=== PATIENT | female | born 1970 | race Caucasian/White ===

== ENCOUNTER 2018-06-13 15:39 | Outpatient (CLI) | payer OTHER | END 2018-06-13 18:59 | disposition home or self-care (01) | LOC: SMA 15:39 | DX: Z12.31 Encounter for screening mammogram for malignant neoplasm of breast (principal) | CPT/HCPCS: 77067 ==

== ENCOUNTER 2021-02-04 06:07 | Day surgery (SDC) | payer OTHER, SELFPAY ==
[2021-02-01 07:46] LABS: BASOPHILS % (AUTO) 0.3 % (0.0-2.0); EOSINOPHILS # (AUTO) 0.1 K/uL (0.0-0.4); HEMATOCRIT 34.8 % (36-48); HEMOGLOBIN 11.6 g/dL (12.0-16.0); LYMPHOCYTES # (AUTO) 2.3 K/uL (1.0-5.5); LYMPHOCYTES % (AUTO) 36.9 % (20.5-51.5); MEAN CORPUSCULAR HEMOGLOBIN 28 pg (27-31); MEAN CORPUSCULAR HGB CONC 33 % (32-36); MEAN CORPUSCULAR VOLUME 84 fL (79.0-98.0); MONOCYTES # (AUTO) 0.4 K/uL (0.0-1.0); MONOCYTES % (AUTO) 6.1 % (1.7-9.3); NEUTROPHILS # (AUTO) 3.3 K/uL (1.8-7.7); NEUTROPHILS % (AUTO) 54.7 % (40.0-70.0); PLATELET COUNT (AUTO) 255 K/uL (130-430); RED BLOOD CELL COUNT(AUTO) 4.16 MIL/uL (4.2-6.2); RED CELL DISTRIBUTION WIDTH 14.5 % (9.0-15.0); WHITE BLOOD COUNT (AUTO) 6.1 K/uL (4.8-10.8)
[2021-02-01 07:56] LABS: PROTHROMBIN TIME 10.5 SECS (9.5-12.5)
[2021-02-01 08:03] LABS: ALBUMIN 3.2 g/dL (3.4-4.8); CALCIUM 8.2 mg/dL (8.4-11.0); CREATININE 0.87 mg/dL (0.55-1.30); POTASSIUM 3.7 mmol/L (3.5-5.1); TOTAL BILIRUBIN 0.3 mg/dL (0.0-1.0)
[~2021-02-04] VITALS: Ht 150.4 cm; Wt 93.9 kg
[2021-02-04] MEDS ORDERED: CEFAZOLIN SOD 2 GM in D5W 50 ML IV ONE (07:00)
[2021-02-04 07:13] LABS: HCG,QUAL RESULT NEGATIVE (NEGATIVE)
[2021-02-04] MEDS ORDERED: fentaNYL CITRATE/PF 100 MCG/2 ML AMP IVP ONE (07:29)
[2021-02-04] MEDS ORDERED: HYDROmorphone 2 MG/ML VIAL IVP ONE (07:29)
[2021-02-04] MEDS ORDERED: ROPIVACAINE 40 MG/20 ML AMP EP ONE (07:29)
[2021-02-04] MEDS ORDERED: DEXAMETHASONE SOD PHOSPHATE 4 MG/ML VIAL IVP ONE (07:29)
[2021-02-04] MEDS ORDERED: DESFLURANE 15 MIN GAS INH ONE (07:29)
[2021-02-04] MEDS ORDERED: PROPOFOL 200MG/ 20ML VIAL (DIPRIVAN) IV ONE (07:29)
[2021-02-04] MEDS ORDERED: ONDANSETRON HCL 4 MG/2 ML VIAL IVP ONE ×2 (07:29→10:38)
[2021-02-04] MEDS ORDERED: KETOROLAC TROMETHAMINE 30 MG VIAL IVP ONE (07:29)
[2021-02-04] MEDS ORDERED: METOCLOPRAMIDE HCL 10 MG/2 ML VIAL IVP ONE (07:29)
[2021-02-04] MEDS ORDERED: LR 1,000 ML IV.SOLN IV ONE (07:29)
[2021-02-04] MEDS ORDERED: ACETAMINOPHEN I.V. 1000 MG 100 ML IV ONE (07:47)
[2021-02-04] MEDS ORDERED: HYDROmorphone 1 MG/ML INJ. CARTRIDGE IVP PRN (08:30)
[2021-02-04] MEDS ORDERED: ONDANSETRON HCL 4 MG/2 ML VIAL IVP PRN (08:30)
[2021-02-04] MEDS ORDERED: HYDROmorphone 1 MG/ML INJ. CARTRIDGE ONE (08:49)
[2021-02-04] MEDS: HYDROmorphone 1 MG/ML INJ. CARTRIDGE IVP PRN ×2 (08:50→09:00)
[2021-02-04 10:30] VITALS: BP_SYST 127
[2021-02-04] MEDS ORDERED: ONDANSETRON HCL 4 MG/2 ML VIAL ONE (10:39)
== END 2021-02-04 12:45 | disposition home or self-care (01) ==
LOC: SDS 06:07 → SMU 06:13 → SDS 12:45
PROVIDERS: ATTEND Orthopaedic Surgery Sports Medicine
DX: S83.242A Other tear of medial meniscus, current injury, left knee, initial encounter (principal); S83.282A Other tear of lateral meniscus, current injury, left knee, initial encounter; M22.42 Chondromalacia patellae, left knee; I10 Essential (primary) hypertension; Z79.84 Long term (current) use of oral hypoglycemic drugs; Z20.822 Contact with and (suspected) exposure to COVID-19; Z79.01 Long term (current) use of anticoagulants; Z79.899 Other long term (current) drug therapy; X58.XXXA Exposure to other specified factors, initial encounter; Y93.9 Activity, unspecified; Y92.89 Other specified places as the place of occurrence of the external cause; Y99.8 Other external cause status
CPT/HCPCS: 29880; 36415; 71046; 80053; 84703; 85025; 85610; 85730; 93005; 97162; J0131; J0690; J1100; J1170 ×2; J1885; J2405; J2704; J2765; J2795; J3010; J7060; J7120; U0003